=== PATIENT | male | born 1955 | race Caucasian/White ===

== ENCOUNTER → 2016-05-24 | Outpatient (CLI) | payer BC ==
--- NOTE | 2016-05-24 15:04 | XR ---
Abdomen Correlation to CT abdomen pelvis 14 May 2016 HISTORY: Kidney stone right side Frontal view of the abdomen submitted on a single image Multiple calcifications are overlying the right kidney, there are approximately 10-20 calcifications, largest is at the upper pole level measuring only approximately 6 mm, multiple calcifications measur ing 1 to 2 mm. Multiple vascular calcifications are present within the pelvis. Left-sided renal calci fication measures approximately 8 mm. Lung bases not included on the exam. There is a mild spinal cur vature. IMPRESSION: Nephrolithiasis.
== END ==
LOC: RADXRMAIN 11:11
PROVIDERS: ATTEND Physician Assistant
DX: N20.0 Calculus of kidney (principal)
CPT/HCPCS: 74000

== ENCOUNTER → 2016-06-14 | Outpatient (CLI) | payer BC ==
--- NOTE | 2016-06-14 08:18 | XR ---
EXAMINATION TYPE: XR abdomen 1V DATE OF EXAM: 06/14/2016 8:14 AM COMPARISON: 05/24/2016 HISTORY: Renal stone TECHNIQUE: One view abdominal series FINDINGS: The osseous structures are intact. The bowel gas pattern is nonspecific. Degenerative change of the spine noted. Arthropathy of the hips noted. Right kidney: There are approximately 20 to calcifications overlying the right kidney the largest jose raul suring 4 mm. Left kidney: There is a stable 8 mm. Left renal calculus. Pelvis: Stable pelvic calcifications. IMPRESSION: 1. Stable bilateral nephrolithiasis.
== END | disposition home or self-care (01) ==
LOC: RADXRMAIN 08:02
PROVIDERS: ATTEND Urology
DX: N20.0 Calculus of kidney (principal)
CPT/HCPCS: 74000

== ENCOUNTER → 2016-07-13 | Outpatient (CLI) | payer BC ==
--- NOTE | 2016-07-13 15:50 | XR ---
Abdomen HISTORY: Right-sided kidney stone View of the abdomen submitted on 2 images and correlated to prior exam dated 05/24/2016, 06/14/2016, CT abdomen pelvis 05/14/2016 Lower pole calcification on the right measures approximately 3 to 4 mm, some additional smaller calci fications are noted. Probable vascular calcification noted towards the renal hilum on the right. Calc ification associated with the left kidney which is atrophic. Probable vascular calcifications present within the pelvis. Bowel gas may obscure detail. No evident bowel obstruction or pneumoperitoneum. IMPRESSION: Nephrolithiasis. Atrophic left kidney. Additional findings above.
== END ==
LOC: RADXRMAIN 15:31
PROVIDERS: ATTEND Urology
DX: N20.0 Calculus of kidney (principal); N26.1 Atrophy of kidney (terminal)
CPT/HCPCS: 74000

== ENCOUNTER 2017-08-17 09:46 | Day surgery (SDC) | payer BC ==
[2017-08-11 10:23] VITALS: BMI 32.3
[~2017-08-17 09:46] MED LIST: DEXAMETHASONE SOD PHOSPHATE 10 MG/ML 1 ML VIAL IV ONE; FAMOTIDINE 20 MG/2 ML VIAL IV ONE; LACTATED RINGERS 1,000 ML IV SCH; MIDAZOLAM 2 MG/2 ML VIAL IV PRN; ONDANSETRON 4 MG/2 ML VIAL IVP ONE; SCOPOLAMINE 1.5MG/72HR PATCH TRANSDERM ONE; fentaNYL (PF) 50 MCG/ML 2 ML AMP IV PRN
[2017-08-17 10:11] VITALS: RESP 16; TEMP 98.5
[2017-08-17] MEDS ORDERED: LIDOCAINE 1% 20 ML VIAL (10MG/ML) FOR IV START INTRADERMA ONE (10:17)
[2017-08-17] MEDS: ceFAZolin 1,000 MG in DEXTROSE/WATER 1 50ML.BAG IV ONE ×2 (11:40→11:41)
[2017-08-17] MEDS ORDERED: PROPOFOL 10 MG/ML 20 ML VIAL IV ONE (11:40)
[2017-08-17] MEDS ORDERED: MIDAZOLAM 2 MG/2 ML VIAL ONE (11:40)
[2017-08-17] MEDS ORDERED: fentaNYL (PF) 50 MCG/ML 2 ML AMP ONE (11:40)
[2017-08-17] MEDS ORDERED: LIDOCAINE 1%-EPI 1:100,000 20 ML VIAL SQ ONE ×2 (11:56)
[2017-08-17] MEDS ORDERED: SODIUM BICARB 8.4% 50 ML VIAL (1 MEQ/ML) MISCELLANE ONE ×2 (11:56)
[2017-08-17] MEDS ORDERED: BACITRACIN 500 UNIT/GM OINT 28.4 GM TUBE TOPICAL ONE (12:46)
--- NOTE | 2017-08-17 12:51 | P.OP ---
Date of Procedure: 08/17/17 Preoperative Diagnosis: Left ear skin lesion Postoperative Diagnosis: Same Procedure(s) Performed: Excision left ear lesion with complex closurewedge excision length 3.4 cm Anesthesia: BANA Surgeon: Chester Wen Estimated Blood Loss (ml): 3 Pathology: other (Left ear skin lesion) Condition: stable Disposition: PACU Indications for Procedure: This is a 62-year-old white male with a chronic nonhealing enlarging lesion of the left ear Operative Findings: Excoriated indurated left ear lesion free margin of the helix inferiorly-basal cell carcinoma on frozen section with initial positive margin anteriorly and therefore additional anterior margin taken Description of Procedure: The patient was brought in the operative suite and placed in a supine position. Patient underwent induction of IV sedation after appropriate monitors were placed. The patient was prepped and draped in usual aseptic fashion. 1% lidocaine with 1-100,000 epinephrine was infused subcutaneously and field block fashion. This was left to work for 7 minutes vasoconstrictive effect. The lesion was initially excised grossly entirely and sent for frozen section. The anterior deep margin was felt to be positive and therefore additional anterior margin was taken for permanent section. Dissection facilitated closure as this facilitated a wedge excision type shape in order to facilitate closure. Hemostasis was gained with electrocautery and the wound was closed in the cartilaginous and subcutaneous layers with inverted interrupted 4-0 Vicryl suture skin closed with running locking 5-0 Prolene suture. Bacitracin ointment and a sterile dressing were placed. Patient tolerated procedure well and was transferred postoperative recovery area in satisfactory condition.
[2017-08-17 13:28] VITALS: BP 123/80; PULSE 57
== END 2017-08-17 13:50 | disposition home or self-care (01) ==
LOC: OR 09:46
PROVIDERS: ATTEND Otolaryngology
DX: C44.219 Basal cell carcinoma of skin of left ear and external auricular canal (principal); I10 Essential (primary) hypertension; Z90.5 Acquired absence of kidney; Z79.2 Long term (current) use of antibiotics; Z79.82 Long term (current) use of aspirin; Z79.1 Long term (current) use of non-steroidal anti-inflammatories (NSAID); Z79.891 Long term (current) use of opiate analgesic; Z79.899 Other long term (current) drug therapy; Z88.5 Allergy status to narcotic agent
CPT/HCPCS: 88305; 88331; 11644; J2250; J1100; J2405; J3010; J0690; J2704

== ENCOUNTER 2018-04-12 08:31 | Day surgery (SDC) | payer BC ==
[2018-04-07 11:40] VITALS: BMI 32.4
[~2018-04-12 08:31] MED LIST changes: -DEXAMETHASONE SOD PHOSPHATE 10 MG/ML 1 ML VIAL IV ONE; -FAMOTIDINE 20 MG/2 ML VIAL IV ONE; -MIDAZOLAM 2 MG/2 ML VIAL IV PRN; -ONDANSETRON 4 MG/2 ML VIAL IVP ONE; -SCOPOLAMINE 1.5MG/72HR PATCH TRANSDERM ONE; -fentaNYL (PF) 50 MCG/ML 2 ML AMP IV PRN
--- NOTE | 2018-04-12 08:46 | P.GSHP ---
History of Present Illness H&P Date: 04/12/18 CHIEF COMPLAINT: Colon screen HISTORY OF PRESENT ILLNESS: The patient is a 63-year-old male who presents for colon screen. Lower endoscopy was offered for further evaluation and management. PAST MEDICAL HISTORY: Please see list. PAST SURGICAL HISTORY: Please see list. MEDICATIONS: Please see list. ALLERGIES: Please see list. SOCIAL HISTORY: No illicit drug use FAMILY HISTORY: No reports of Crohn disease or ulcerative colitis. REVIEW OF ORGAN SYSTEMS: CONSTITUTIONAL: No reports of fevers or chills. PHYSICAL EXAM: VITAL SIGNS: Stable GENERAL: Well-developed pleasant in no acute distress. HEENT: No scleral icterus. Extraocular movements grossly intact. Moist buccal mucosa. NECK: Supple without lymphadenopathy. CHEST: Unlabored respirations. Equal bilateral excursions. CARDIOVASCULAR: Regular rate and rhythm. Distal 2+ pulses. ABDOMEN: Soft, nontender, nondistended. MUSCULOSKELETAL: No clubbing, cyanosis, or edema. ASSESSMENT: 1. Colon screen. PLAN: 1. Recommend proceeding with a lower endoscopy Past Medical History Past Medical History: Cancer, Hyperlipidemia, Hypertension Additional Past Medical History / Comment(s): HX KIDNEY STONES. born with only rt kidney. skin cancer History of Any Multi-Drug Resistant Organisms: None Reported Past Surgical History: Orthopedic Surgery Additional Past Surgical History / Comment(s): BILAT KNEES SCOPED, COLONOSCOPY, LITHOTRIPSY, skin cancer removed from lt ear Past Anesthesia/Blood Transfusion Reactions: No Reported Reaction Smoking Status: Never smoker - Past Family History Mother Family Medical History: No Reported History Medications and Allergies Home Medications Medication Instructions Recorded Confirmed Type Aspirin [Adult Low Dose Aspirin EC] 81 mg PO DAILY 08/11/17 08/11/17 History Colesevelam [Welchol] 625 mg PO 1200 08/11/17 08/17/17 History Meloxicam 15 mg PO DAILY 08/11/17 08/11/17 History Metoprolol Succinate (ER) [Toprol 100 mg PO DAILY 08/11/17 08/17/17 History Xl] Terazosin [Hytrin] 2 mg PO HS 08/11/17 08/17/17 History Verapamil HCl [Verelan Pm] 100 mg PO HS 08/11/17 08/17/17 History [place]-3 Fatty Acids/Fish Oil [Fish 1 each PO 04/07/18 History Oil 1,000 mg Softgel] Allergies Allergy/AdvReac Type Severity Reaction Status Date / Time codeine AdvReac AGITATION Verified 04/07/18 11:32
[2018-04-12] MEDS ORDERED: LIDOCAINE 1% 20 ML VIAL (10MG/ML) FOR IV START INTRADERMA ONE (09:20)
[2018-04-12 09:22] VITALS: RESP 16
[2018-04-12] MEDS ORDERED: PROPOFOL 10 MG/ML 20 ML VIAL IV ONE (09:44)
--- NOTE | 2018-04-12 10:17 | P.PCN ---
Date of Procedure: 04/12/18 Description of Procedure: PREOPERATIVE DIAGNOSIS: Colonoscopy screening. POSTOPERATIVE DIAGNOSIS: Colonoscopy screening. Diverticulosis, scattered. Sigmoid colon stricture OPERATION: Colonoscopy to the ileocecal valve and appendiceal orifice. SURGEON: Vy Rose MD. ANESTHESIA: MAC. INDICATIONS: The patient is a 63-year-old male who presents for colonoscopy screening. Last colonoscopy was over 7 years ago. Benefits and risks were described and informed consent was obtained. DESCRIPTION OF PROCEDURE: The patient had undergone Gatorade, MiraLAX and Dulcolax prep. He had been brought into the operating room and laid in the left lateral decubitus position. After adequate intravenous sedation, the rectum was examined with 2% lidocaine jelly. The prostate was smooth and without abnormality. No external hemorrhoids were encountered. The rectal tone was within normal limits. No lesions were palpated in the rectal vault. An Olympus colonoscope was advanced until the ileocecal valve and appendiceal orifice were clearly viewed. The prep was fair to poor with moderate liquid stools limiting complete visualization of the mucosa. The scope was slowly withdrawn. Tight stricture was found along the sigmoid colon requiring careful manipulation without injury to large mouth diverticula. Sigmoid diverticulosis was encountered. No colonic polyps were found. No evidence of focal colitis was found. Retroflexion of the scope demonstrated no internal hemorrhoids. The colon was desufflated. The patient had tolerated the procedure well. Withdrawal time was over 6 minutes. FINDINGS: No internal hemorrhoids No external prolapsed hemorrhoids. No arteriovenous malformations. No adenomatous polyps. No focal colitis. Severe sigmoid diverticulosis with sigmoid colon stricture RECOMMENDATIONS: Repeat lower endoscopy in 10 years, 2028. Plan - Discharge Summary Discharge Rx Participant: Yes New Discharge Prescriptions: No Action Terazosin [Hytrin] 2 mg PO HS Metoprolol Succinate (ER) [Toprol Xl] 100 mg PO DAILY Verapamil HCl [Verelan Pm] 100 mg PO HS Meloxicam 15 mg PO DAILY Colesevelam [Welchol] 625 mg PO 1200 Aspirin [Adult Low Dose Aspirin EC] 81 mg PO DAILY [place]-3 Fatty Acids/Fish Oil [Fish Oil 1,000 mg Softgel] 1 each PO DAILY Discharge Medication List Aspirin [Adult Low Dose Aspirin EC] 81 mg PO DAILY 08/11/17 [History] Colesevelam [Welchol] 625 mg PO 1200 08/11/17 [History] Meloxicam 15 mg PO DAILY 08/11/17 [History] Metoprolol Succinate (ER) [Toprol Xl] 100 mg PO DAILY 08/11/17 [History] Terazosin [Hytrin] 2 mg PO HS 08/11/17 [History] Verapamil HCl [Verelan Pm] 100 mg PO HS 08/11/17 [History] [place]-3 Fatty Acids/Fish Oil [Fish Oil 1,000 mg Softgel] 1 each PO DAILY [History] Follow up Appointment(s)/Referral(s): Vy Rose MD [STAFF PHYSICIAN] - 04/25/18 Patient Instructions/Handouts: Diverticulosis Diet (GEN), Diverticulosis (DC) Activity/Diet/Wound Care/Special Instructions: Follow up regarding colon stricture Discharge Disposition: HOME SELF-CARE
[2018-04-12 10:23] VITALS: PULSE 68
[2018-04-12 10:29] VITALS: BP 133/84; TEMP 69
== END 2018-04-12 10:40 | disposition home or self-care (01) ==
LOC: ORWHC2ENDO 08:31
PROVIDERS: ATTEND Surgery Plastic and Reconstructive Surgery
DX: Z12.11 Encounter for screening for malignant neoplasm of colon (principal); K57.30 Diverticulosis of large intestine without perforation or abscess without bleeding; K56.699 Other intestinal obstruction unspecified as to partial versus complete obstruction; I10 Essential (primary) hypertension; E78.5 Hyperlipidemia, unspecified; Z85.828 Personal history of other malignant neoplasm of skin; Z87.442 Personal history of urinary calculi; Q60.0 Renal agenesis, unilateral; Z79.1 Long term (current) use of non-steroidal anti-inflammatories (NSAID); Z79.82 Long term (current) use of aspirin; Z79.899 Other long term (current) drug therapy; Z88.5 Allergy status to narcotic agent
CPT/HCPCS: G0121; J2704; 45378

== ENCOUNTER → 2019-11-10 | Outpatient (CLI) | payer BC ==
--- NOTE | 2019-11-10 15:22 | CT ---
EXAMINATION TYPE: CT abdomen pelvis wo con DATE OF EXAM: 11/10/2019 COMPARISON: Prior CT 05/14/2016 HISTORY: Right flank pain, negative gross hematuria, history of renal stones CT DLP: 933.80 mGycm Automated exposure control for dose reduction was used. TECHNIQUE: Helical acquisition of images from the lung bases through the pelvis. FINDINGS: Lack of intravenous contrast could compromise sensitivity. There is a hiatal hernia with pa rtial intrathoracic stomach. There are some coronary artery calcifications present. LUNG BASES: No significant abnormality is appreciated. AORTA: No significant abnormality is appreciated. LIVER/GB: No significant abnormality is appreciated. PANCREAS: No significant abnormality is seen. SPLEEN: No significant abnormality is seen. ADRENALS: No significant abnormality is seen. KIDNEYS: Left kidney is atrophic and shows an associated calcification, the kidney measures only appr oximately 4 cm in cephalad to caudal dimension. The right kidney shows multiple calcifications, appro ximately 15 calcifications are present. Largest is at the lower pole and measures approximately 4 to 5 mm. There is no hydronephrosis. Compensatory hypertrophy is present, the right kidney measures 13 c m.. REPRODUCTIVE ORGANS: Prostate is enlarged and shows associated calcification. URINARY BLADDER: Urinary bladder shows a thickened wall likely due to chronic outlet obstruction. BOWEL: Extensive diverticular changes associated with the sigmoid colon. Retained fecal debris is pr esent throughout the distribution of the colon. The appendix is unremarkable. FREE AIR: No Free Air is visible. ASCITES: None visible. PELVIC ADENOPATHY: None visualized. RETROPERITONEAL ADENOPATHY: No Retroperitoneal Adenopathy visible. OSSEOUS STRUCTURES: Degenerative disc changes are present in the visualized spine, there is a spinal curvature. Bilateral spondylolysis is present at L5. Minimal anterolisthesis grade 1 L4-5.. IMPRESSION: CHRONIC ATROPHY OF THE LEFT KIDNEY. NONOBSTRUCTIVE RIGHT NEPHROLITHIASIS. Correlate for fecal stasis. Diverticulosis. Probable chronic bladder outlet obstruction. Additional findings above.
== END | disposition home or self-care (01) ==
LOC: RADCTMAIN 07:42
PROVIDERS: ATTEND Family Medicine
DX: N26.1 Atrophy of kidney (terminal) (principal); N20.0 Calculus of kidney; K57.90 Diverticulosis of intestine, part unspecified, without perforation or abscess without bleeding
CPT/HCPCS: 74176

== ENCOUNTER → 2019-11-21 | Outpatient (CLI) | payer BC ==
--- NOTE | 2019-11-21 15:38 | XR ---
EXAMINATION TYPE: XR KUB DATE OF EXAM: 11/21/2019 COMPARISON: 07/13/2016 HISTORY: Follow-up right kidney stones TECHNIQUE: One view abdominal series FINDINGS: Degenerative changes spine. Nonspecific gas pattern. Calcifications in the pelvis are stable and ther efore likely vascular. Arthropathy of the hips. Left kidney: There are 2 calcifications in the region of the upper pole left kidney largest measuring 7 mm. Right kidney: There are approximately 12 calcifications scattered throughout the right kidney the lar gest measuring 5 mm. Calcification the right renal hilum measuring 4 mm. Findings similar to prior ex am. IMPRESSION: 1. Bilateral nephrolithiasis similar to prior exam.
== END | disposition home or self-care (01) ==
LOC: RADXRMAIN 15:18
PROVIDERS: ATTEND Urology
DX: N20.0 Calculus of kidney (principal)
CPT/HCPCS: 74018

== ENCOUNTER 2019-11-26 06:05 | Day surgery (SDC) | payer BC ==
[2019-11-22 13:33] VITALS: BMI 30.9
--- NOTE | 2019-11-25 10:50 | P.GSHP ---
History of Present Illness H&P Date: 11/25/19 65 yo male with a history of stones who has multiple right renal stones. He has pain He comes for eswl right Risks complications and alternatives have been discussed. - Constitutional Constitutional: Denies chills, Denies fever - EENT Eyes: denies blurred vision, denies pain Ears, nose, mouth and throat: Denies headache, Denies sore throat - Cardiovascular Cardiovascular: Denies chest pain, Denies shortness of breath - Respiratory Respiratory: Denies cough, Denies 7 - Gastrointestinal Gastrointestinal: Denies abdominal pain, Denies diarrhea, Denies nausea, Denies vomiting - Genitourinary (Female) Genitourinary: Denies dysuria, Denies hematuria - Genitourinary (Male) Genitourinary: Denies dysuria, Denies hematuria - Musculoskeletal Musculoskeletal: Denies myalgias - Integumentary Integumentary: Denies pruritus, Denies rash - Neurological Neurological: Denies numbness, Denies weakness - Psychiatric Psychiatric: Denies anxiety, Denies depression - Endocrine Endocrine: Denies fatigue, Denies weight change Past Medical History Past Medical History: Cancer, Hyperlipidemia, Hypertension Additional Past Medical History / Comment(s): HX KIDNEY STONES, born with only rt kidney,. hx skin cancer History of Any Multi-Drug Resistant Organisms: None Reported Past Surgical History: Heart Catheterization, Orthopedic Surgery Additional Past Surgical History / Comment(s): BILAT KNEES SCOPED, COLONOSCOPY, LITHOTRIPSY, skin cancer removed from lt ear Past Anesthesia/Blood Transfusion Reactions: No Reported Reaction Smoking Status: Never smoker - Past Family History Mother Family Medical History: No Reported History Medications and Allergies Home Medications Medication Instructions Recorded Confirmed Type Aspirin [Adult Low Dose Aspirin EC] 81 mg PO DAILY 08/11/17 11/22/19 History Colesevelam [Welchol] 0.5 tab PO 1200 08/11/17 11/22/19 History Meloxicam 15 mg PO DAILY 08/11/17 11/22/19 History Metoprolol Succinate (ER) [Toprol 100 mg PO QAM 08/11/17 11/22/19 History Xl] Verapamil HCl [Verelan Pm] 100 mg PO PC-LUNCH 08/11/17 11/22/19 History [place]-3 Fatty Acids/Fish Oil [Fish 1 each PO DAILY 04/07/18 11/22/19 History Oil 1,000 mg Softgel] Colesevelam [Welchol] 0.5 tab PO PC-SUPPER 11/22/19 11/22/19 History Terazosin [Hytrin] 1 mg PO HS 11/22/19 11/22/19 History Terazosin [Hytrin] 2 mg PO HS 11/22/19 11/22/19 History Allergies Allergy/AdvReac Type Severity Reaction Status Date / Time codeine AdvReac AGITATION Verified 11/22/19 13:22 Surgical - Exam - General well developed, well nourished, no distress - Eyes PERRL - ENT no hearing loss - Neck trachea midline - Respiratory normal expansion, normal respiratory effort - Cardiovascular Rhythm: regular - Abdomen Abdomen: soft, non tender - Integumentary no rash, no growths - Neurologic normal coordination, normal sensation - Musculoskeletal normal gait, normal posture - Psychiatric oriented to time, oriented to person, oriented to place, speech is normal, memory intact Assessment and Plan Assessment: Impression: RIght renal stones Plan: eswl right
[2019-11-26] MEDS ORDERED: LACTATED RINGERS 1,000 ML IV SCH (07:00)
[2019-11-26] MEDS ORDERED: ONDANSETRON 4 MG/2 ML VIAL IVP ONE (07:00)
[2019-11-26] MEDS ORDERED: HYDROmorphone 0.5 MG/0.5 ML SYRINGE IVP PRN (07:00)
[2019-11-26] MEDS ORDERED: DEXAMETHASONE SOD PHOSPHATE 10 MG/ML 1 ML VIAL IV ONE (07:00)
[2019-11-26 07:13] VITALS: RESP 16; TEMP 97.8
[2019-11-26] MEDS ORDERED: LIDOCAINE 1% (10MG/ML) FOR IV START INTRADERMA ONE (07:18)
[2019-11-26 07:25] LABS: Glucose,Whole Blood 128 mg/dL (75-99)
[2019-11-26] MEDS ORDERED: PROPOFOL 10 MG/ML 20 ML VIAL IV ONE (07:27)
[2019-11-26] MEDS ORDERED: MIDAZOLAM 2 MG/2 ML VIAL ONE (07:27)
[2019-11-26] MEDS ORDERED: fentaNYL (PF) 50 MCG/ML 2 ML AMP ONE (07:27)
--- NOTE | 2019-11-26 08:06 | P.OP ---
Date of Procedure: 11/26/19 Preoperative Diagnosis: Right renal calculi Postoperative Diagnosis: Same Procedure(s) Performed: Extracorporeal shockwave lithotripsy, 2500 shocks at energy level IV Anesthesia: MAC Surgeon: Jer Welsh Estimated Blood Loss (ml): 0 Pathology: none sent Condition: stable Disposition: PACU Indications for Procedure: The patient is 64. He has kidney stone disease. He has several small stones in his right kidney. He recently passed a stone. He had like shockwave lithotripsy to the remaining stones. Description of Procedure: The patient is brought to the operating suite. He is given a sedative anesthetic on the lithotripsy table. The stones are seen in 2 views of fluoroscopy. Several 100 shocks to each stone are administered. The stones appeared to have fragmented nicely. We will see how he responds to stone fragment passage. Reassess with a KUB postoperatively. The stones are all 3-4 mm in size. The patient's awake and returned recovery in good condition. He tolerated procedure well be discharged home upon recovery
--- NOTE | 2019-11-26 08:39 | XR ---
KUB HISTORY: Kidney stone, preop Frontal KUB and 2 images correlated prior KUB 11/21/2019, CT 11/10/2019 Calcifications overlying the kidneys and paraspinal locations are again noted. Retained fecal debris is present throughout the distribution of the colon. There is a spinal curvature. Degenerative disc c hanges are noted in the visualized spine. Multiple calcifications in the pelvis are again seen. IMPRESSION: Nephrolithiasis. Correlate for fecal stasis.
[2019-11-26 09:02] VITALS: BP 133/85; PULSE 61
== END 2019-11-26 09:40 | disposition home or self-care (01) ==
LOC: ORWHC2ENDO 06:05
PROVIDERS: ATTEND Urology
DX: N20.0 Calculus of kidney (principal); I10 Essential (primary) hypertension; E78.5 Hyperlipidemia, unspecified; Z87.442 Personal history of urinary calculi; Q60.0 Renal agenesis, unilateral; Z88.5 Allergy status to narcotic agent; Z79.82 Long term (current) use of aspirin; Z79.899 Other long term (current) drug therapy; Z98.890 Other specified postprocedural states; Z85.828 Personal history of other malignant neoplasm of skin
CPT/HCPCS: 74018; 50590; J2250; J1100; J2405; J3010; J2704

== ENCOUNTER → 2019-12-04 | Outpatient (CLI) | payer BC ==
--- NOTE | 2019-12-04 18:08 | XR ---
EXAMINATION TYPE: XR abdomen 1V DATE OF EXAM: 12/04/2019 8:20 AM CLINICAL HISTORY: Renal calculus. Right-sided lithotripsy one week ago. TECHNIQUE: Supine images of the abdomen and pelvis were obtained COMPARISON: 11/26/2019 KUB. FINDINGS: Multiple calcifications are seen overlying the bilateral kidneys. The right renal lower nura e calcification is diminished and fragmented in appearance versus 11/26/2019. Scattered gas is seen i n non-distended small bowel loops. Gas and fecal material is seen in non-distended colon. Images of t he lumbosacral spine. Pelvic phleboliths redemonstrated. IMPRESSION: Bilateral nephrolithiasis. Diminished fragmented stone burden of the right renal lower pole.
== END | disposition home or self-care (01) ==
LOC: RADXRMAIN 08:07
PROVIDERS: ATTEND Urology
DX: N20.0 Calculus of kidney (principal)
CPT/HCPCS: 74018

== ENCOUNTER → 2020-01-01 | Outpatient (CLI) | payer BC ==
--- NOTE | 2020-01-01 16:36 | XR ---
EXAMINATION TYPE: XR KUB DATE OF EXAM: 01/01/2020 8:32 AM CLINICAL HISTORY: Kidney stone. Status post right lithotripsy. TECHNIQUE: Supine images of the abdomen and pelvis were obtained COMPARISON: Abdominal radiograph 12/04/2019. FINDINGS: Multiple calcifications over the bilateral kidneys appear similar to 12/04/2019 comparison. Pelvic phleboliths redemonstrated. Nonspecific bowel gas pattern. Degenerative changes of the spine. IMPRESSION: Bilateral nephrolithiasis with similar appearance to 12/04/2019.
== END | disposition home or self-care (01) ==
LOC: RADXRMAIN 08:18
PROVIDERS: ATTEND Urology
DX: N20.0 Calculus of kidney (principal)
CPT/HCPCS: 74018

== ENCOUNTER → 2020-07-03 | Outpatient (CLI) | payer BC ==
--- NOTE | 2020-07-03 10:41 | XR ---
KUB HISTORY: Lithotripsy, right-sided kidney stone Frontal KUB submitted on 2 images and correlated to prior KUB 01/01/2020, CT 11/10/2019 There is a levoscoliosis with degenerative disc change in the visualized spine. Overlying bowel gas o bscures underlying detail. Multiple pelvic calcifications are again seen. Calcifications are again no shawn over the right kidney as on prior, multiple small calcifications are present. Left paraspinal loc ation at L1 also shows some oval calcifications, larger the 2 measuring approximately 11 mm, left kid marco noted to be markedly atrophic on prior CT. IMPRESSION: Right-sided nephrolithiasis is again noted.
== END | disposition home or self-care (01) ==
LOC: RADXRMAIN 09:03
PROVIDERS: ATTEND Urology
DX: N20.0 Calculus of kidney (principal)
CPT/HCPCS: 74018

== ENCOUNTER → 2021-04-01 | Outpatient (CLI) | payer MEDICARE, BC ==
--- NOTE | 2021-04-01 15:55 | XR ---
EXAMINATION TYPE: XR KUB DATE OF EXAM: 04/01/2021 COMPARISON: 07/03/2020 HISTORY: Right renal stone TECHNIQUE: One view abdominal series FINDINGS: Overlying bowel content limits assessment of the renal outlines. However, there appear to be numerous punctate less than 5 mm right renal calculi estimated approximately 10-12. Findings suspicious for a 6 mm left renal calculus. Corticated density adjacent to left paraspinal li ne is stable and likely lies outside the course of the genitourinary system. Degenerative change of the spine. Bowel gas pattern nonspecific with retained fecal debris. Calcifica tions in the pelvis are likely vascular given their stability from prior exam. IMPRESSION: 1. Suspect bilateral nephrolithiasis.
== END | disposition home or self-care (01) ==
LOC: RADXRMAIN 15:04
PROVIDERS: ATTEND Urology
DX: N20.0 Calculus of kidney (principal); N20.1 Calculus of ureter
CPT/HCPCS: 74018

== ENCOUNTER → 2021-08-06 | Outpatient (CLI) | payer MEDICARE, BC ==
--- NOTE | 2021-08-06 09:37 | XR ---
EXAMINATION TYPE: XR KUB DATE OF EXAM: 08/06/2021 COMPARISON: NONE HISTORY: Pain TECHNIQUE: One view abdominal series FINDINGS: The osseous structures are intact. The bowel gas pattern is nonspecific. Right kidney: There are multiple fragments of a calcification involving the lower pole. Estimated slava roximately 15 calcifications. Largest measures 6 mm. Additional calcifications seen along the mid nura e as well as in the renal pelvic region measuring approximately 5 mm. These findings are stable. Left kidney: Stable appearing well-corticated density adjacent to the left paraspinal line most likel y outside the course and system. Previously noted 6 mm questionable calcification not seen on toda y's exam and may be obscured by bowel gas. . Splenic and occulta involving the sacrum. Scoliotic curvature and degenerative changes of the spine. Nonspecific calcifications in pelvis are stable prior exam. IMPRESSION: 1. Stable bilateral nephrolithiasis.
== END | disposition home or self-care (01) ==
LOC: RADXRMAIN 09:21
PROVIDERS: ATTEND Urology
DX: N20.1 Calculus of ureter (principal)
CPT/HCPCS: 74018

== ENCOUNTER → 2022-08-06 | Outpatient (CLI) | payer MEDICARE, BC ==
--- NOTE | 2022-08-06 08:59 | XR ---
EXAMINATION TYPE: XR KUB DATE OF EXAM: 08/06/2022 8:47 AM CLINICAL HISTORY: Kidney calculus TECHNIQUE: Two supine KUB images of the abdomen are obtained. COMPARISON: Abdominal x-ray one year earlier. FINDINGS: Several right renal calculi including lower pole 12 mm calculus all redemonstrated. There i s enlarging 13 mm upper pole calculus right kidney projecting over the superior right 12th rib. Suspe ct stable 8 mm calculus left kidney at left L1 transverse process level. No definitive new left-side d nephrolithiasis. Scattered bilateral pelvic phleboliths redemonstrated. Overall nonobstructive bowel gas pattern. Levoconvex scoliosis centered at L3 level redemonstrated. IMPRESSION: As above.
== END | disposition home or self-care (01) ==
LOC: RADXRMAIN 08:34
PROVIDERS: ATTEND Urology
DX: N20.0 Calculus of kidney (principal)
CPT/HCPCS: 74018

== ENCOUNTER → 2023-04-06 | Outpatient (CLI) | payer MEDICARE, BC ==
--- NOTE | 2023-04-06 13:53 | XR ---
EXAMINATION TYPE: XR KUB DATE OF EXAM: 04/06/2023 11:31 AM CLINICAL INDICATION:Male, 68 years old with history of N20.0 calculus; COMPARISON: 08/06/2022 TECHNIQUE: One radiographic view of the abdomen was obtained. FINDINGS: Calculi project of the right kidney and remain present measuring up to 18 mm. Left renal ca lculus measuring up to 9 mm. The bowel gas pattern is nonspecific without dilated loops of small or l arge bowel. There is no evidence for organomegaly or pneumoperitoneum. The osseous structures are in tact. No abnormal calcifications are present. Fecal material and gas are demonstrated throughout the colon and rectum. Multilevel degeneration changes of the spine with joint space narrowing osteophyt e formation and pelvic phleboliths. IMPRESSION: Bilateral renal calculi unchanged from prior.
== END | disposition home or self-care (01) ==
LOC: RADXRMAIN 11:21
PROVIDERS: ATTEND Urology
DX: N20.0 Calculus of kidney (principal)
CPT/HCPCS: 74018

== ENCOUNTER → 2023-09-23 | Outpatient (CLI) | payer MEDICARE, BC | END | disposition home or self-care (01) | LOC: LABPRL 12:00 | PROVIDERS: ATTEND Family Medicine | DX: E11.65 Type 2 diabetes mellitus with hyperglycemia (principal) | CPT/HCPCS: 80053; 80061; 83036; 85025 ==

== ENCOUNTER → 2024-05-16 | Outpatient (CLI) | payer MEDICARE, BC ==
--- NOTE | 2024-05-17 16:26 | XR ---
EXAMINATION TYPE: XR KUB DATE OF EXAM: 05/16/2024 10:53 AM COMPARISON: 04/06/2023 CLINICAL INDICATION: Male, 69 years old with history of N20.0 Calculus kidney, TECHNIQUE: XR KUB view(s) obtained. FINDINGS: There is a normal bowel gas pattern. Fecal debris within the colon. Psoas margins are normal. No organomegaly is present. Multiple calcifications overlie the right kidney. There is a calcification which may be a ureteral pe lvic stone on the left. Largest calcification at the upper pole right kidney is 1.9 cm. Largest calci fication lower pole right kidney is 1.5 cm. Left ureteral pelvic junction region stone measures 1.1 c m. Additional right renal stones are evident. Findings were present previously. Some new calcifications are in the right chalo- pelvis. This measures 1.6 cm. Fluid is within the pelv is. IMPRESSION: 1. Multiple bilateral renal stones greater on the right. 2. Right hemipelvis calcification [facility], , 05/17/2024 4:23 PM
== END | disposition home or self-care (01) ==
LOC: RADXRMAIN 10:41
PROVIDERS: ATTEND Urology
DX: N20.0 Calculus of kidney (principal)
CPT/HCPCS: 74018